=== PATIENT | male | born 1950 | race Caucasian/White ===

== ENCOUNTER → 2016-04-20 | Outpatient (CLI) | payer BC ==
[~2016-04-20] MED LIST: ADVIN25050 INH; ALBUAER19 INH; METO25TA56 PO; MONT1TAB3 PO; NEOMYCIN OTB; PANT40TA PO; POLYMYXIN OTB; PRAV40TA2 PO; TERA5CAP PO; TIOTCAP INH; VITAMIN B-12 PO; VITAMIN D PO; ZNTT/150 PO
== END | disposition home or self-care (01) ==
LOC: C.MAMM 10:01
PROVIDERS: ATTEND Family Medicine
DX: E55.9 Vitamin D deficiency, unspecified (principal); M81.0 Age-related osteoporosis without current pathological fracture

== ENCOUNTER → 2016-07-07 | Outpatient (CLI) | payer BC ==
[2016-07-07 12:01] LABS: ALT/SGPT 28 U/L (12-78); AST/SGOT 17 U/L (15-37); BLOOD UREA NITROGEN 18 mg/dl (7-18); BUN/CREATININE RATIO 13.5 (10-20); CALCIUM 8.7 mg/dl (8.5-10.1); CARBON DIOXIDE 32 mmol/L (21-32); CHLORIDE 104 mmol/L (98-107); GLUCOSE 96 mg/dl (70-99); POTASSIUM 4.1 mmol/L (3.5-5.1); SODIUM 139 mmol/L (136-145)
[2016-07-07 12:04] LABS: ALB/GLOB RATIO 1.1 (0.9-2); ALKALINE PHOSPHATASE 88 U/L (45-117)
== END | disposition home or self-care (01) ==
LOC: C.LAB 10:59
PROVIDERS: ATTEND Physician Assistant
DX: R93.8 Abnormal findings on diagnostic imaging of other specified body structures (principal)

== ENCOUNTER → 2016-07-12 | Outpatient (CLI) | payer BC ==
[~2016-07-12] MED LIST changes: +OPTIRAY 320 IV PRN
--- NOTE | 2016-07-12 14:42 | DIAGNOSTIC IMAGING REPORT ---
CT ABD/PELVIS IV AND ORAL CONT CLINICAL HISTORY: Lymphadenopathy. COMPARISON STUDY: 06/18/2015 TECHNIQUE: Following the IV administration of 93 mL of Optiray-320, CT scan of the abdomen and pelvis was performed from the lung bases to the proximal femurs. Images are reviewed in the axial, sagittal, and coronal planes. IV contrast was administered without complication. CT DOSE: 908.12 mGy.cm FINDINGS: Lower chest: There is elevation/eventration of the right hemidiaphragm. There is right basilar atelectasis. Liver: There is mild hepatic steatosis. No focal masses are visualized. Gallbladder: Unremarkable. Spleen: Normal in size and attenuation. Pancreas: Unremarkable. Adrenal glands: Unremarkable. Kidneys: There are left renal parapelvic cysts. No solid renal masses are visualized. Bowel: There are no transition zones indicate bowel obstruction. There is colonic diverticulosis. There are no acute peridiverticular inflammatory changes. Peritoneum: There is no intraperitoneal free air or abdominal ascites. This tiny fat-containing umbilical hernia. Vasculature: The abdominal aorta is normal in course and caliber. Adenopathy: Mildly prominent lymph nodes at the level of the iliac chain and common femoral region remain stable. Pelvic viscera: The bladder, and pelvic viscera are unremarkable. 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 IMPRESSION: 1. No evidence of bowel obstruction. No evidence of free air 2. No acute inflammatory changes 3. No significant change x1 year in the mildly prominent retroperitoneal lymph nodes. The nodes remain the upper limits of normal in size. 4. Elevation/eventration right hemidiaphragm. Right basilar atelectasis. Electronically signed by: Gustabo Hernandez M.D. 07/12/2016 2:41 PM Dictated Date/Time: 07/12/2016 2:36 PM
== END | disposition home or self-care (01) ==
LOC: C.CTS 13:33
PROVIDERS: ATTEND Internal Medicine
DX: R93.5 Abnormal findings on diagnostic imaging of other abdominal regions, including retroperitoneum (principal); R59.1 Generalized enlarged lymph nodes

== ENCOUNTER → 2016-07-20 | Outpatient (CLI) | payer BC ==
[~2016-07-20] MED LIST changes: -OPTIRAY 320 IV PRN
--- NOTE | 2016-07-20 18:10 | DIAGNOSTIC IMAGING REPORT ---
CHEST 2 VIEWS ROUTINE CLINICAL HISTORY: Hypoxia COMPARISON STUDY: 03/09/2016 FINDINGS: There is elevation of the right hemidiaphragm. There is colonic interposition. The heart is normal in size. There is no failure. There is no focal pulmonary consolidation. No pleural effusions are visualized. There is stable tenting of the posterior right hemidiaphragm on the lateral view.[ IMPRESSION: No active disease in the chest. Electronically signed by: Gustabo Hernandez M.D. 07/20/2016 6:09 PM Dictated Date/Time: 07/20/2016 6:08 PM
== END | disposition home or self-care (01) ==
LOC: C.RAD 17:38
PROVIDERS: ATTEND Internal Medicine
DX: R09.02 Hypoxemia (principal)

== ENCOUNTER → 2016-08-11 | Outpatient (CLI) | payer BC ==
--- NOTE | 2016-08-11 10:39 | DIAGNOSTIC IMAGING REPORT ---
CHEST 2 VIEWS ROUTINE HISTORY: Cough. COMPARISON: Chest 07/20/2016. FINDINGS: Suture material within the right lung apex is again noted. There is chronic elevation of the right hemidiaphragm. The heart is stable in size. No pleural effusions. No pneumothorax. Right medial lung base density remains unchanged likely represent subsegmental atelectasis. A few linear densities the left lung base. The upper lung zones remain clear. IMPRESSION: 1. Chronic elevation of the right hemidiaphragm with stable linear densities at the right lung base suggestive of atelectasis are scarring. 2. There are also a few linear densities at the left lung base which also favors atelectasis. Electronically signed by: Erick Abkar M.D. 08/11/2016 10:38 AM Dictated Date/Time: 08/11/2016 10:35 AM
== END | disposition home or self-care (01) ==
LOC: C.RAD1850 10:17
PROVIDERS: ATTEND Physician Assistant Medical
DX: R05 Cough (principal)

== ENCOUNTER → 2016-11-17 | Outpatient (CLI) | payer BC ==
--- NOTE | 2016-11-18 09:11 | PAP/PSG TECHNICIAN REPORT ---
[facility] Mitigation Supervisor Polysomnogram Report Study name: None Report date: 11/18/2016 Study date: 11/17/2016 Referring Physician: Letty Broderick DO Name: LILIANE HARTMAN Interpreting Physician: Jarvis Lutz D.O. Date of : 1950 Mitigation Supervisor: Anca Hamilton, PSGT. Sex: Male Age: 66 StudyType: PSG Weight: 221 lbs Height: 66 years, Height 5' 11" Neck Circum:16.5 inches BMI: 30.82 Medications: See list of 15 medications. Patient History 66 yr. old male in room 7, presents tonight for a diagnostic split night study. Patient has a very complex medical history. He complains of shortness of breath coughing phlegm and morning headaches, wakes often to urinate, and states that he sleeps elevated for acid reflux and C.O.P.D. Ess= 11, Neck = 16.5 inches. Parameters Monitored NPSG: E1-M2, E2-M1, Fp1-M2, Fp2-M1, F3-M2, F4-M2, F4-M1, C3-M2, C4-M2, C4-M1, O1-M2, O2-M2, O2-M1, T3-M2, T4-M1, P3-M2, P4-M1, CHIN1, CHIN2, HR, EKG, Legs, PFLOW, SNOR, FLOW, CFLOW, Tidal Volume, THOR, ABDO, SpO2, PLTH, CPRESS, ETCO2 Wave, ETCO2, pH Sleep Architecture Sleep Stages Time at Lights Off 11:01:05 PM STAGES Time (min.) TST (%) Time at Lights On 5:32:35 AM Wake 85.0 -- Total Recording Time (TRT) 388.00 min. N1 13.5 4 Total Sleep Period (TSP) 357.0 min. N2 246.0 81 Total Sleep Time (TST) 303.0min. N3 0.0 0 Awake Time 85.0 min. REM 43.5 14 Wake after Sleep Onset 56.5 min. Sleep Efficiency (SE) 78 % Sleep Onset Latency (ANTONINO) 32.0 min. Number of Stage 1 Shifts None Awakenings 6 Stage Changes 28 Number of REM periods 3 REM 43.5 14 REM Latency 151.0 min. NREM 259.5 86 Body Position Analysis Supine Right Left Side Prone Vertical Total Sleep Time (min.) 100.3 0.0 234.1 234.11 0.0 0.0 Total Sleep Time (%) 23% 0% 77% 77 0% N/A% Total Sleep Time REM (min.) 0.0 0.0 43.5 None 0.0 0.0 Total Sleep Time NREM (min.) 68.9 0.0 190.6 None 0.0 0.0 Intermittent Wake (min.) 31.4 0.0 53.6 None 0.0 0.0 Total Sleep Period (%) 27% None None None None None Arousals Myoclonus (PLM) * Events Count Index Events Count Index Spontaneous 45 9 Events Awake (PLMW) 7 4.9 Respiratory 23 4.6 Events Asleep w/ Arousal (PLMA) 23 4.6 PLM 23 5 Events Asleep w/o Arousal (PLMS) 171 33.9 Snoring 16 3 Total Asleep 194 38.4 Total 107 21 Total 201 31 Respiratory Analysis * CA OA MA CH H RERA Total Count 0 3 1 0 132 0 136 Index 0.0 0.6 0.2 0 26.1 0 26.9 Mean Duration 0.0 14.8 13.7 0.00 20.7 0.0 20.5 Longest Duration 0.0 15.5 13.7 0.00 13.7 0.0 55.1 Respiratory Event Summary Total Supine ~Supine Right Left Prone REM NREM Apneas Count 4 0 4 N/A 4 N/A 0 4 Index 0.8 0 1 N/A 1.0 N/A 0 1 Hypopneas (4% Desat) Count 132 65 67 N/A 67 N/A 22 110 Index 26.1 56.6 17 N/A 17.2 N/A 30.3 25.4 Apneas & All Hypopneas Count 136 65 71 N/A 71 N/A 22 114 Index 26.9 57 18 N/A 18 N/A 30.3 26.4 Respiratory Events ([employer]+All Hyp+RERA) Count 136 65 71 N/A 71 N/A 22 114 Index 26.9 57 18 N/A 18.2 N/A 30.3 26.4 Respiratory Related Arousal Count 23 65 6 N/A 6 N/A 1 22 Index 4.6 15 2 N/A 2 N/A 1 5 Snoring Analysis Supine Right Left Prone REM NREM Total Snore duration 40.2 min Snores count 107 N/A 1,530 N/A 40 1,597 1,637 Snore mean duration 1.5 Sec Snores index 93 N/A 392 N/A 55.2 369.2 324.2 TST with snoring (%) 13.3% Desaturation Event Summary: Minimum %SpO2 Event Count Mean/Min/Max Duration(sec.) Desaturation Index % Time In Bed > 90 9 24.0 / 15.3 / 43.0 24.4 5.7 86 - 90 122 24.7 / 9.3 / 58.8 34.7 54.6 81 - 85 52 23.6 / 11.0 / 54.3 30.5 26.5 76 - 80 19 22.5 / 10.8 / 47.0 56.5 5.2 71 - 75 20 22.8 / 6.5 / 43.5 63.8 4.9 66 - 70 4 16.5 / 10.0 / 25.8 22.0 2.8 61 - 65 0 N/A 0.0 0.3 56 - 60 0 N/A 0.0 0.0 51 - 55 0 N/A 0.0 0.0 < 50 0 N/A 0.0 0.0 Total REM NREM Awake <50% 0.0 min. 0.0 min. 0.0 min. 0.0 min. 51 - 60% 0.0 min. 0.0 min. 0.0 min. 0.0 min. 61 - 70% 12.0 min. 12.0 min. 0.0 min. 0.0 min. 71 - 80% 39.0 min. 25.6 min. 13.3 min. 0.0 min. 81 - 90% 312.9 min. 5.9 min. 244.4 min. 62.6 min. 91 - 100% 22.1 min. 0.0 min. 1.7 min. 20.4 min. Average 85 74 85 89 Minimum SpO2 63 63 72 82 Desaturation Event Index 27.2 48.3 32.6 0.7 # Desat. Events below 89% 176 35 141 N/A Time(%) with Saturation below 89% 83.2 11.3 62.8 9.1 Time(min.) with Saturation below 89% 320.9 43.5 242.4 35.1 Time (mins) REM (mins) NREM (mins) % of TST SpO2 Below 90% 176 35 N141 97.4 SpO2 Below 88% 72 0 0 86 Heart Rate Analysis Min (bpm) Max (bpm) Average (bpm) Awake 56 127 71 NREM 56 88 71 REM 69 94 81 Overall 56 94 72 Supplemental O2 Values Minimum O2 level: None Value Start Time End Time Mitigation Supervisor Comments PSG Study slept in the left, and supine positions, with the head of the bed inclined at a 45-degree angle. No cardiac arrhythmia or PLM's noted. No bruxism noted. Snoring was noted and scored as a 4 on a scale of 1 through 5. (0=no snoring, 5=snoring loud enough to be heard through a closed door or down the [address] way) awoke to use the restroom 5 times during the night. Mr. Hartman stated, I did sleep better than I do when I am in my own bed. The final report will be interpreted and signed by a sleep physician. The completed physician report will then be placed in the patient medical record. Mr. Hartman dispalyed severe oxygen saturations the entire study, he also had respiratory events throughout the study. Mr. Rader was asked to turn off all the electronics at 11:15 PM, he stated that he often reads prior to falling asleep. Patient complained of nasal congestion and chest (rib) pain prior to sleep. Therapy (cm H2O) 0 TIB (min.) 388.0 TST (min.) 303.0 Sleep Onset (min.) 32.0 REM Onset From Sleep (min.) 151.0 Sleep Efficiency % 78 Wakefulness (%) 22 Wakefulness (min.) 85.0 NREM 1 (%) 4 NREM 1 (min.) 13.5 NREM 2 (%) 81 NREM 2 (min.) 246.0 NREM 3 (%) 0 NREM 3 (min.) 0.0 REM (%) 14 REM (min.) 43.5 # Arousals 107 Arousal Index 21 # Snore 1,637 Snore Index 324.2 AHI 26.9 AHI Supine 57 AHI Non-Supine 18 NREM AHI 26.4 REM AHI 30.3 RDI 26.9 # Obstructive Apnea 3 # Central Apnea 0 # Mixed Apnea 1 # Hypopneas 132 RERAs 0 Total Respiratory Events 136 Time Below SpO2 89% (min.) 285.9 Mean NREM SpO2 (%) 85 Mean REM SpO2 (%) 74 Mean Sleep SpO2 (%) 84 Min NREM SpO2 (%) 72 Min REM SpO2 (%) 63 Position Supine (min.) 100.3 Position Non-supine (min.) 234.1 LM Index Sleep 38.4 LM Index NREM 39.8 LM Index REM 30.3 Mean Heart Rate (bpm) 72 Min Heart Rate (bpm) 56
--- NOTE | 2016-11-21 15:19 | POLYSOMNOGRAPH REPORT ---
CLINICAL DATA: The patient is a 66-year-old male with a BMI of 30.82. He has a history of snoring, disturbed nocturnal sleep, and excessive daytime somnolence. His Camden score is 11 out of a possible 24. This was an in-lab polysomnography. SLEEP ARCHITECTURE: The total sleep period was 357.0 minutes. The total sleep time was 303.0 minutes. The sleep efficiency was 78%. The sleep latency was prolonged at 32 minutes. Wake after sleep onset was 56.5 minutes. REM latency was prolonged to 151 minutes. There were 2 REM periods during the night. Sleep consisted of stage N1 4%, stage N2 81%, stage N3 0%, stage REM 14%. AROUSAL DATA: The patient had a total of 107 arousals including 45 spontaneous arousals, 23 respiratory arousals, 23 PLM arousals, and 16 snoring arousals. The arousal index was 21. PLM DATA: The patient had a total of 194 periodic limb movements for a PLM index of 38.4. There were 23 arousals associated with limb movements for a PLM arousal index of 4.6. EKG: The underlying cardiac rhythm was normal sinus. The cardiac rates ranged from 56-94 beats per minute. The average heart rate was 72 beats per minute. RESPIRATORY DATA: The patient had a total of 136 respiratory events including 3 obstructive apneas, 1 mixed apnea, and 132 hypopneas. Hypopneas were scored according to the 4% desaturation rule. The longest apnea was 15.5 seconds. The mean duration of the hypopneas was 20.7 seconds. The apnea-hypopnea index was moderately elevated at 26.9 events per hour. This reflects moderate sleep apnea. OXIMETRY DATA: The average saturation for the night was 85%. The minimum saturation was 63%. The most severe desaturations occurred during REM sleep. There was a total of 320.9 minutes with saturations less than 89%. ROOFING SALES REPRESENTATIVE COMMENTS: The patient slept in the left and supine positions. The head of the bed was inclined at 45-degree angle. No cardiac arrhythmia noted. No bruxism noted. Snoring was noted and scored as a 4 on a scale of 1 through 5. The patient awakened to use the restroom 5 times during the night. In spite of this, the patient stated that he slept better than he does when in his own bed. He displayed severe oxygen desaturations throughout the entire study. IMPRESSIONS: 1. Obstructive sleep apnea -- moderate. 2. Periodic limb movement disorder. 3. Severe hypoxia. COMMENTS: The patient had loud snoring. He had moderate sleep apnea as noted above. He had severe hypoxemia. His sleep was disrupted as a result of the sleep disordered breathing. He also had frequent periodic limb movements. The underlying sleep disordered breathing should be treated first. The limb movements can then be assessed after treatment. The patient does have significant symptoms. He has a history of asthma and diaphragmatic paralysis. Treatment for the underlying sleep apnea is indicated. RECOMMENDATIONS: 1. It is advised that the patient be given a trial of nasal CPAP or BiPAP. This could be accomplished either by an in-lab CPAP titration study or treatment with auto CPAP. 2. The patient should have a followup overnight pulse oximetry study done while on CPAP to determine if he still needs additional oxygenation. 3. Suggest a serum ferritin level as part of the evaluation for the limb movement disorder. 4. Weight loss is advised in light of the elevation of body mass index of 30.82.
== END | disposition home or self-care (01) ==
LOC: C.NEUR 21:00
PROVIDERS: ATTEND Internal Medicine Pulmonary Disease
DX: G47.33 Obstructive sleep apnea (adult) (pediatric) (principal); G47.61 Periodic limb movement disorder; G47.34 Idiopathic sleep related nonobstructive alveolar hypoventilation

== ENCOUNTER 2024-12-14 18:00 | Inpatient (IN) ==
[2024-12-14 18:30] LABS: Hematocrit (blood only) 46.5 % (42.0-52.0); Hemoglobin 16.7 g/dl (14.0-18.0); Immature Granulocytes # (auto) 0.03 K/uL (0.01-0.20); Immature Granulocytes % (auto) 0.4 %; Mean Corpuscular Hemoglobin 32.1 pg (25.0-34.0); Mean Corpuscular Volume 89.3 fL (80.0-100.0); Platelet Count 114 K/uL (130-400); RDW Standard Deviation 41.1 fL (36.4-46.3); Red Blood Count 5.21 M/uL (4.70-6.10); White Blood Count 7.10 K/ul (4.8-10.8)
[2024-12-14 18:45] LABS: Alanine Aminotransferase 22.0 U/L (7-52); Albumin Globulin Ratio 1.3 (0.9-2); Albumin Level 3.9 gm/dl (3.4-5.0); Alkaline Phosphatase 71.0 U/L (34-104); Anion Gap 8.0 (3-11); Bilirubin,Total 1.5 mg/dl (0.2-1.0); Blood Urea Nitrogen 29.0 mg/dl (6-23); Calcium 8.5 mg/dl (8.6-10.3); Carbon Dioxide 28.0 mmol/L (21-32); Chloride 95.0 mmol/L (98-107); Creatinine Clr Calc Pharmacy 36.9 ml/min; Globulin 3.0 gm/dl (2.5-4.0); Glucose 139.0 mg/dl (70-99(Fasting)); Potassium 4.1 mmol/L (3.5-5.1); Sodium 131.0 mmol/L (136-145); Total Protein 6.9 gm/dl (6.0-8.3)
[2024-12-14] MEDS: SODIUM CHLORIDE 0.9% 1,000 ML IV ONE (18:58)
--- NOTE | 2024-12-14 18:58 | XRay Report ---
Chest radiograph, one view History: Dyspnea Comparison: None Findings: Single AP view of the chest performed. No focal consolidation or pleural effusion. No pneumothorax. The cardiomediastinal silhouette is within normal limits. Normal pulmonary vascularity. No evidence for lymphadenopathy. No visualized bony or soft tissue abnormality. Impression: Normal chest radiograph Electronically signed by Jeferson Li 12-14-2024 6:58 PM
--- NOTE | 2024-12-14 19:07 | Emergency Department Note ---
Impression & Plan Fever, Acute hypoxic respiratory failure ED Provider Note NAME: LILIANE ESQUEDA AGE: 74 SEX: M : 1950 ARRIVES VIA: Ambulance INFORMANT: Patient, ED PROVIDER(S): Anitha Sweet MD CHIEF COMPLAINT: Fatigue, confusion, fever HPI: This is 72-year-old male presenting for fatigue, confusion, nausea. Patient had nausea for the last several days, unable to take his medications at home. He states he may have had a fever. He thought he had a upper respiratory infection but it is not getting better. He notes he feels weak. He has no chest pain or shortness of breath currently. His daughter state that he definitely is acting more confused and fatigued. Patient had a fever with EMS as per daughters. ROS: See above HPI for pertinent positives & negatives. A total of 10 systems reviewed and were otherwise negative. PAST MEDICAL HISTORY: See Below PAST SURGICAL HISTORY: See Below FAMILY HISTORY: See Below SOCIAL HISTORY: See Below HOME MEDICATIONS: See Below ALLERGIES: See Below VITALS: See Below PHYSICAL EXAMINATION: General: resting comfortably in no acute distress Head: Normocephalic and atraumatic Eyes: Normal inspection, extraocular muscles intact Ear, nose, throat: Normal external exam Neck: Normal range of motion Respiratory: lungs clear to auscultation bilaterally Cardiovascular: Regular rate/rhythm, no murmur GI: soft, nontender, no guarding or rebound Extremities: nontender, moves all extremities Neuro: The patient awake and alert, appropriately conversive, no focal deficits, symmetric faces Skin: Warm, dry, and intact MEDICAL DECISION MAKING: This is a 74-year-old male seen for fatigue, confusion/nausea. Patient is febrile, tachycardic. Not hypotensive. Not taking his blood pressure medications. Will do screening blood work, respiratory panel, chest x-ray. - Chest Xray independently interpreted by me showing no pneumothorax, focal opacity, or pleural effusions. - Bloodwork is reviewed showing no significant leukocytosis, anemia. Slight hyponatremia/hypochloremia. Creatinine is 2.02. Respiratory panel negative -Will admit the patient at this time for fever, tachycardia. Will give ceftriaxone and azithromycin for empiric coverage - Care discussed with Dr. Hollis Differential diagnosis: Pneumonia, URI, sepsis, UTI Independent History obtained from: [facility] interpreted by me: ECG: ECG independently interpreted by me with sinus tachycardia at a rate of 113, first-degree AV block, left axis deviation normal QRS, normal QTc, no ST segment elevations consistent with STEMI criteria Cardiac Monitoring: An order was placed for continuous cardiac monitoring. The monitor shows a rate of 114 with sinus rhythm. Past Med/Surg History Problem List (Updated 12/15/24 @ 00:28 by Anitha Sweet MD) Acute hypoxic respiratory failure (Acute) Fever (Acute) Acute metabolic encephalopathy Fever Carpal tunnel syndrome on both sides Tingling Mild cognitive impairment Nocturnal hypoxia Torticollis Facet arthropathy, cervical Balance problem Neuroforaminal stenosis of cervical spine Cervical spondylosis Chronic low back pain Stage 3b chronic kidney disease Chronic kidney disease, stage 3 (moderate) Depression with anxiety Esophageal dysphagia Asthma COPD (chronic obstructive pulmonary disease) Allergic rhinitis Asthma, moderate persistent Chronic asthmatic bronchitis Diaphragmatic paralysis Fatty liver Gastroesophageal reflux disease without esophagitis Hypercholesterolemia Hypertension Lumbar canal stenosis Obstructive sleep apnea of adult can't tolerate cpap Prediabetes not dx that pt aware of Unequal leg length (acquired) Vitamin B12 deficiency Vitamin D deficiency Medical History Esophageal dysphagia pt denies COVID-19 (~03/27/24) hx with influenza B - resolved as per patient Influenza B (~03/27/24) and covid hx - resolved as patient 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 Frequent urination at night Terazosin for/never been told prostate enlarged. Anemia History of Lyme disease Surgical History History of esophagogastroduodenoscopy (EGD) History of colonoscopy History of total right hip replacement History of cataract surgery Bilateral H/O excision of mass Left lower back S/P thoracotomy (2004) Right Status post blepharoplasty (2012) Bilateral Status post vasectomy Status post arthroscopy of knee Left Status post hip replacement (12/2014) Left Family History Father Asthma Bronchitis Cardiac disorder Myocardial infarction Hypertension Mother Lymphoma Denies family history of Ovarian cancer Prostate cancer Breast cancer Colorectal cancer Social History Smoking Status: Former smoker Tobacco Type: Smokeless Tobacco (Dip or Chew) Age Started Using Tobacco: 20; Cigarettes Per Day: CHEWS TOBACCO DAILY (1 can last 2-3 days); Second Hand Exposure: No; Do You Dip or Chew Tobacco: Yes (Advised); Hx Alcohol Use: No Hx Substance Use: No Preferred Language: Belarusian Communication Ability: Effective Visual Impairment: No Limitations Hearing Ability: Normal Lump Room Supervisor Required: No Beliefs That Will Affect Care: None marital status: Current Living Situation: Family Current Living Situation Comment: Daughter current occupational status: retired How many Children do You have: 3 Feels Safe at Home: Yes Childhood Exposure to Second-Hand Smoke: Yes (father sometimes) Diet: regular caffeine: Yes during the past year weight has: remained stable Dental Care, Regularly: Yes Physical Activity Frequency: Daily Seatbelt Use: always Sunscreen Use: No Assistive Devices: Glasses Allergies Allergies Allergy/AdvReac Type Severity Reaction Status Date / Time adhesive tape Allergy Intermediate with hip Verified 11/23/24 10:44 replacement: tape irritated skin clavulanic acid AdvReac Intermediate Vomiting Verified 11/23/24 10:44 [From Augmentin] pollen Allergy Intermediate Itchy/Watery Uncoded 11/23/24 10:44 Eyes, Congestion, Runny Nose Home Meds Home Medications Medication Instructions Recorded Confirmed losartan 50 mg tablet 100 mg PO DAILY 10/18/24 12/14/24 metoprolol succinate 25 mg 12.5 mg PO QAM 10/18/24 12/14/24 tablet,extended release 24 hr Previous Rx's Medication Instructions Recorded pantoprazole 40 mg tablet,delayed 40 mg PO BID #180 tabs 06/01/24 release fluticasone propionate 50 2 spray intranasal UD PRN 07/17/24 mcg/actuation nasal Allergies #48 grams spray,suspension montelukast 10 mg tablet 10 mg PO QAM #90 tabs 09/04/24 (Singulair) terazosin 5 mg capsule 5 mg PO HS #90 caps 09/17/24 baclofen 10 mg tablet 10 mg PO BID PRN muscle spasm #60 10/05/24 tabs fluticasone fur. 100 mcg-umeclid 1 inh inhalation QAM #90 ea 11/26/24 62.5 mcg-vilant 25 mcg inhalat.powder (Trelegy Ellipta) Results & Data (ED) Vital Signs Vital Signs - 24 hr 12/14/24 18:05 12/14/24 18:05 12/14/24 18:09 Temperature Temperature Source Pulse Rate 113 H Pulse Rate from SpO2 Sensor 113 H Respiratory Rate 22 Respiratory Effort / Characteristics Respiratory Depth Blood Pressure 162/101 H 162/101 H Blood Pressure Mean 119 119 Pulse Oximetry 94 Oxygen Delivery Method Oxygen Flow Rate Sepsis Recent Fever Within 48 Hours Sepsis New/Unexplained Change in Mental Status Sepsis Action Taken by Nursing 12/14/24 18:11 12/14/24 18:11 12/14/24 18:16 Temperature 38.2 C H Temperature Source Oral Pulse Rate 113 H 114 H Pulse Rate from SpO2 Sensor Respiratory Rate 17 Respiratory Effort / Characteristics Non-Labored Spontaneous Respiratory Depth Normal Blood Pressure 162/101 H Blood Pressure Mean 121 Pulse Oximetry 86 L 94 Oxygen Delivery Method Room Air Nasal Cannula Oxygen Flow Rate 2 Sepsis Recent Fever Within 48 Hours Yes Sepsis New/Unexplained Change in Mental Status No Sepsis Action Taken by Nursing Physician Notified 12/14/24 18:22 12/14/24 18:33 12/14/24 18:42 Temperature Temperature Source Pulse Rate 115 H 114 H Pulse Rate from SpO2 Sensor 113 H 114 H Respiratory Rate 19 24 Respiratory Effort / Characteristics Respiratory Depth Blood Pressure Blood Pressure Mean Pulse Oximetry 93 94 94 Oxygen Delivery Method Nasal Cannula Oxygen Flow Rate 2 Sepsis Recent Fever Within 48 Hours Sepsis New/Unexplained Change in Mental Status Sepsis Action Taken by Nursing 12/14/24 18:51 12/14/24 19:27 12/14/24 19:30 Temperature Temperature Source Pulse Rate 113 H 117 H 123 H Pulse Rate from SpO2 Sensor 114 H 121 H Respiratory Rate 23 18 19 Respiratory Effort / Characteristics Respiratory Depth Blood Pressure 148/81 H Blood Pressure Mean 103 Pulse Oximetry 94 93 Oxygen Delivery Method Oxygen Flow Rate Sepsis Recent Fever Within 48 Hours Sepsis New/Unexplained Change in Mental Status Sepsis Action Taken by Nursing 12/14/24 20:09 12/14/24 20:12 12/14/24 20:24 Temperature Temperature Source Pulse Rate 107 H 108 H 107 H Pulse Rate from SpO2 Sensor 108 H 108 H 108 H Respiratory Rate 22 21 20 Respiratory Effort / Characteristics Respiratory Depth Blood Pressure Blood Pressure Mean Pulse Oximetry 95 94 94 Oxygen Delivery Method Oxygen Flow Rate Sepsis Recent Fever Within 48 Hours Sepsis New/Unexplained Change in Mental Status Sepsis Action Taken by Nursing 12/14/24 20:31 12/14/24 20:45 12/14/24 20:54 Temperature Temperature Source Pulse Rate 102 H 107 H Pulse Rate from SpO2 Sensor Respiratory Rate 22 28 H Respiratory Effort / Characteristics Respiratory Depth Blood Pressure 137/106 H Blood Pressure Mean 114 Pulse Oximetry Oxygen Delivery Method Oxygen Flow Rate Sepsis Recent Fever Within 48 Hours Sepsis New/Unexplained Change in Mental Status Sepsis Action Taken by Nursing Laboratory Data 12/14/24 Unknown 12/14/24 Unknown Lab Results 12/14/24 Range/Units Unknown WBC 7.10 (4.8-10.8) K/ul RBC 5.21 (4.70-6.10) M/uL Hgb 16.7 (14.0-18.0) g/dl Hct 46.5 (42.0-52.0) % MCV 89.3 (80.0-100.0) fL MCH 32.1 (25.0-34.0) pg MCHC 35.9 (32.0-36.0) g/dL RDW Std Deviation 41.1 (36.4-46.3) fL RDW Coeff of Robyn 12.5 (11.5-14.5) % Plt Count 114 L (130-400) K/uL MPV 10.1 (9.4-12.4) fL Immature Gran % (Auto) 0.4 % Neut % (Auto) 86.7 % Lymph % (Auto) 7.5 % [place] % (Auto) 5.1 % Eos % (Auto) 0.0 % Baso % (Auto) 0.3 % Neut # (Auto) 6.16 (1.40-6.50) K/uL Lymph # (Auto) 0.53 L (1.20-3.40) K/uL [place] # (Auto) 0.36 (0.11-0.59) K/uL Eos # (Auto) 0.00 (0.00-0.50) K/uL Baso # (Auto) 0.02 (0.00-0.20) K/uL Immature Gran # (Auto) 0.03 (0.01-0.20) K/uL Sodium 131 L (136-145) mmol/L Potassium 4.1 (3.5-5.1) mmol/L Chloride 95 L (98-107) mmol/L Carbon Dioxide 28 (21-32) mmol/L Anion Gap 8 (3-11) BUN 29 H (6-23) mg/dl Creatinine 2.02 H (0.6-1.4) mg/dl Est Cr Clr Drug Dosing 36.9 ml/min eGFR 34.39 BUN/Creatinine Ratio 14.4 (10-20) Glucose 139 H (70-99(Fasting)) mg/dl Calcium 8.5 L (8.6-10.3) mg/dl Total Bilirubin 1.5 H (0.2-1.0) mg/dl AST 29 (13-39) U/L ALT 22 (7-52) U/L Alkaline Phosphatase 71 (34-104) U/L Total Protein 6.9 (6.0-8.3) gm/dl Albumin 3.9 (3.4-5.0) gm/dl Globulin 3.0 (2.5-4.0) gm/dl Albumin/Globulin Ratio 1.3 (0.9-2) Administered Medications Lactated Ringer's (Lr) 1,000 mls @ 125 mls/hr IV .Q8H [place] Stop: 12/15/24 15:09 Last Admin: 12/14/24 23:54 Dose: 125 mls/hr Documented By: AES Ondansetron HCl (Ondansetron Inj 2 Mg/Ml 2 Ml Vial) 4 mg IV Q6H PRN PRN Reason: Nausea And Vomiting Stop: 01/13/25 23:09 Last Admin: 12/15/24 00:23 Dose: 4 mg Documented By: AES Pantoprazole Sodium (Pantoprazole 40 Mg Tab) 40 mg PO BID [place] Stop: 01/13/25 23:09 Last Admin: 12/14/24 23:57 Dose: 40 mg Documented By: AES Terazosin HCl (Terazosin Hcl 5 Mg Cap) 5 mg PO HS [place] Stop: 01/13/25 23:09 Last Admin: 12/15/24 00:01 Dose: 5 mg Documented By: AES Discontinued Medications Sodium Chloride (Nss) 1,000 mls @ 999 mls/hr IV .Q1H1M ONE Stop: 12/14/24 19:17 Last Infusion: 12/14/24 20:06 Dose: Infused Documented By: Admin: 12/14/24 18:58 Dose: 999 mls/hr Documented By: BS Ceftriaxone Sodium (Rocephin) 2,000 mg in 50 mls @ 100 mls/hr IV NOW STA Stop: 12/14/24 20:50 Last Infusion: 12/14/24 22:21 Dose: Infused Documented By: Admin: 12/14/24 21:48 Dose: 100 mls/hr Documented By: BS Doxycycline Hyclate 100 mg/ (Dextrose) 100 mls @ 50 mls/hr IV NOW STA Stop: 12/14/24 22:56 Last Infusion: 12/15/24 00:24 Dose: Infused Documented By: Admin: 12/14/24 22:17 Dose: 50 mls/hr Documented By: BS Acetaminophen (Ofirmev) 1,000 mg in 100 mls @ 400 mls/hr IV NOW STA Stop: 12/14/24 23:32 Last Infusion: 12/14/24 23:53 Dose: Infused Documented By: Admin: 12/14/24 23:25 Dose: 400 mls/hr Documented By: AES Metoprolol Succinate (Metoprolol Succ 25mg Ext Rel Tab) 25 mg PO NOW STA Stop: 12/14/24 20:22 Last Admin: 12/14/24 21:48 Dose: 25 mg Documented By: BS Imaging Data Radiologist's Impression: Chest X-Ray 12/14/24 18:17 Chest radiograph, one view History: Dyspnea Comparison: None Findings: Single AP view of the chest performed. No focal consolidation or pleural effusion. No pneumothorax. The cardiomediastinal silhouette is within normal limits. Normal pulmonary vascularity. No evidence for lymphadenopathy. No visualized bony or soft tissue abnormality. Impression: Normal chest radiograph Electronically signed by Jeferson Li 12-14-2024 6:58 PM Discharge Plan Visit Data Chief Complaint: Fever Stated Complaint: WEAK, DIZZY, FEVER ED Provider: Anitha Sweet Discharge Problem: Fever, Acute hypoxic respiratory failure Patient Disposition: Admitted As Inpatient Condition: Fair Discharge Instructions Interventions: ED Discharge Assessment Last Done: 12/14/24 23:23 Discharge Problem: Fever Qualifiers: Fever type: unspecified Qualified Code(s): R50.9 - Fever, unspecified
[2024-12-14 19:55] LABS: Chlamydia pneumoniae PCR Not Detected (NotDetected); Coronavirus 229E PCR Not Detected (NotDetected); Coronavirus CoV-2 (COVID19)PCR Not Detected (NotDetected); Coronavirus HKU1 PCR Not Detected (NotDetected); Coronavirus NL63 PCR Not Detected (NotDetected); Coronavirus OC43PCR Not Detected (NotDetected); Human Metapneumovirus PCR Not Detected (NotDetected); Parainfluenza Virus 1 PCR Not Detected (NotDetected); Parainfluenza Virus 2 PCR Not Detected (NotDetected); Parainfluenza Virus 3 PCR Not Detected (NotDetected); Parainfluenza Virus 4 PCR Not Detected (NotDetected); Respiratory Syncytial VirusPCR Not Detected (NotDetected); Rhinovirus/Enterovirus PCR Not Detected (NotDetected)
[2024-12-14 20:35] LABS: Appearance Urine Clear (Clear); Bacteria Urine Automated None Seen (None Seen); Epithelial Cell Urine Auto 0-2 /hpf (0-2); Glucose Urine UA Negative (Negative); WBC Urine Automated 0-5 /hpf (0-5)
--- NOTE | 2024-12-14 20:57 | History & Physical Report ---
Date of Service December 14, 2024 Assessment & Plan (1) Fever: (2) Acute metabolic encephalopathy: (3) COPD (chronic obstructive pulmonary disease): (4) Hypertension: (5) Gastroesophageal reflux disease without esophagitis: (6) Stage 3b chronic kidney disease: Plan Patient is a 74-year-old male with history of hypertension, hyperlipidemia, COPD, CKD presenting with 4 to 5 days of nausea, generalized weakness, headache, fever and confusion. Patient febrile upon arrival #FeverTmax = 38.3. Patient with elevated heart rate as well. He has normal WBC count. No obvious source of infection as of yet. Respiratory bio fire panel was unremarkable, chest x-ray with no infiltrate, urinalysis does not suggest infection. Blood cultures x 2 have been sent. Patient Lyme screen is positive however, confirmatory IgG and IgM tests are negative. [place] and has been doing projects outside of [facility]. Do suspect that he could have some sort of tickborne illness. Labs in favor of this with thrombocytopenia platelets = 114, lymphopenia as well as hyponatremia and elevated T. bili Admit to medical telemetry Follow cultures and remaining Lyme/tickborne studies LR at 125 mL's per hour x 2 L Tylenol as needed for pain or fever Empiric antibiotics with ceftriaxone and doxycycline for now #Acute metabolic encephalopathypatient is more confused, likely secondary to underlying infection, dehydration. He is arousable, answers questions appropriately and follows commands. mild hyponatremia with sodium = 131 not likely contributing. He has largely normal electrolytes. Empiric antibiotics as above Frequent orientation #COPDno cough, shortness of breath or wheeze. Patient with adequate oxygenation on 2 L nasal cannula. He does have oxygen at home that he uses at night Continue Trelegy or formulary equivalent Albuterol as needed for shortness of breath or wheeze #Hypertensionpatient with significant tachycardia upon arrival. Suspect at least in part to beta-sai withdrawal. Patient is on metoprolol 12.5 mg every morning and has not taken his medication for several days Continue metoprolol 12.5 mg p.o. every morning Hold losartan for now given increased creatinine Continue to monitor #GERD Continue Protonix 40 mg p.o. twice daily #XAVI on CKDpatient with elevated creatinine from baseline. Reports he has not been eating or drinking over the last several days. Additional labs confirm dehydration LR at 125 mL/h x 2 L Avoid nephrotoxic agents Renal dosing were needed Repeat chemistry in the morning #DVT prophylaxis Heparin twice daily. Monitor platelets History of Present Illness Chief Complaint: Nausea, generalized weakness, rigors, confusion Primary Care Provider: DO Amrit Colónmariam is a 74-year-old male with history of hypertension, hyperlipidemia, CKD stage III presenting from home with 4 to 5 days of nausea, generalized weakness, fever, headache and confusion. Patient does not provide many details of his symptoms but daughters are at bedside and provide majority of history. last week patient was quite active around his home and completed a lot of projects in his home and around his property. [place]. Over the last 4 to 5 days he has had significant nausea, decreased oral intake and has not been taking his medications. He has had generalized weakness and fatigue as well as fever and confusion. This evening daughters have noted rigors as well. Patient endorses mild abdominal pain as well. No reports of chest pain, cough, shortness of breath. No reports of rash, joint pain or diarrhea. No urinary complaints. In the ER patient is febrile at 38.2, tachycardic at 123 beats a minute, mildly elevated blood pressure, initially hypoxic at 86% on room air which improved to 93% with placement of 2 L nasal cannula. ER course: Normal saline x 1 L Metoprolol succinate 25 mg p.o. Ceftriaxone 2 g IV Doxycycline 1100 mg IV Allergies Allergy/AdvReac Type Severity Reaction Status Date / Time adhesive tape Allergy Intermediate with hip Verified 11/23/24 10:44 replacement: tape irritated skin clavulanic acid AdvReac Intermediate Vomiting Verified 11/23/24 10:44 [From Augmentin] pollen Allergy Intermediate Itchy/Watery Uncoded 11/23/24 10:44 Eyes, Congestion, Runny Nose Home Medications Medication Instructions Recorded Confirmed Type pantoprazole 40 mg tablet,delayed 40 mg PO BID #180 tabs 06/01/24 12/14/24 Rx release fluticasone propionate 50 2 spray intranasal UD PRN 07/17/24 12/14/24 Rx mcg/actuation nasal Allergies #48 grams spray,suspension montelukast 10 mg tablet 10 mg PO QAM #90 tabs 09/04/24 12/14/24 Rx (Singulair) terazosin 5 mg capsule 5 mg PO HS #90 caps 09/17/24 12/14/24 Rx baclofen 10 mg tablet 10 mg PO BID PRN muscle spasm #60 10/05/24 12/14/24 Rx tabs losartan 50 mg tablet 100 mg PO DAILY 10/18/24 12/14/24 History metoprolol succinate 25 mg 12.5 mg PO QAM 10/18/24 12/14/24 History tablet,extended release 24 hr fluticasone fur. 100 mcg-umeclid 1 inh inhalation QAM #90 ea 11/26/24 12/14/24 Rx 62.5 mcg-vilant 25 mcg inhalat.powder (Trelegy Ellipta) Past Med/Surg History Problem List (Updated 12/15/24 @ 00:28 by Anitha Sweet MD) Acute hypoxic respiratory failure (Acute) Fever (Acute) Acute metabolic encephalopathy Fever Carpal tunnel syndrome on both sides Tingling Mild cognitive impairment Nocturnal hypoxia Torticollis Facet arthropathy, cervical Balance problem Neuroforaminal stenosis of cervical spine Cervical spondylosis Chronic low back pain Stage 3b chronic kidney disease Chronic kidney disease, stage 3 (moderate) Depression with anxiety Esophageal dysphagia Asthma COPD (chronic obstructive pulmonary disease) Allergic rhinitis Asthma, moderate persistent Chronic asthmatic bronchitis Diaphragmatic paralysis Fatty liver Gastroesophageal reflux disease without esophagitis Hypercholesterolemia Hypertension Lumbar canal stenosis Obstructive sleep apnea of adult can't tolerate cpap Prediabetes not dx that pt aware of Unequal leg length (acquired) Vitamin B12 deficiency Vitamin D deficiency Medical History Esophageal dysphagia pt denies COVID-19 (~03/27/24) hx with influenza B - resolved as per patient Influenza B (~03/27/24) and covid hx - resolved as patient 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 Frequent urination at night Terazosin for/never been told prostate enlarged. Anemia History of Lyme disease Surgical History History of esophagogastroduodenoscopy (EGD) History of colonoscopy History of total right hip replacement History of cataract surgery Bilateral H/O excision of mass Left lower back S/P thoracotomy (2004) Right Status post blepharoplasty (2012) Bilateral Status post vasectomy Status post arthroscopy of knee Left Status post hip replacement (12/2014) Left Family History Father Asthma Bronchitis Cardiac disorder Myocardial infarction Hypertension Mother Lymphoma Denies family history of Ovarian cancer Prostate cancer Breast cancer Colorectal cancer Social History Smoking Status: Former smoker Tobacco Type: Smokeless Tobacco (Dip or Chew) Age Started Using Tobacco: 20; Cigarettes Per Day: CHEWS TOBACCO DAILY (1 can last 2-3 days); Second Hand Exposure: No; Do You Dip or Chew Tobacco: Yes (Advised); Hx Alcohol Use: No Hx Substance Use: No Preferred Language: Russian Communication Ability: Effective Visual Impairment: No Limitations Hearing Ability: Normal Tobacco Cloth Reclaimer Required: No Beliefs That Will Affect Care: None marital status: Current Living Situation: Family Current Living Situation Comment: lives with his daughter current occupational status: retired How many Children do You have: 3 Feels Safe at Home: Yes Childhood Exposure to Second-Hand Smoke: Yes (father sometimes) Diet: regular caffeine: Yes during the past year weight has: remained stable Dental Care, Regularly: Yes Physical Activity Frequency: Daily Seatbelt Use: always Sunscreen Use: No Assistive Devices: Glasses Review of Systems Review of Systems: All systems reviewed & are unremarkable except as noted in HPI & below Physical Exam Physical Exam: General: patient Ill in appearance, somnolent but arousable, answers some questions and falls back to sleep. Following all commands. Skin: warm, dry, intact, no rashes or lesions HEENT: NC/AT, PERRL, EOMI, anicteric sclera, conjunctiva without injection, external ear normal to inspection and nontender, nares patent, Dry mucus membranes, dentition intact, no oropharyngeal lesions, neck supple, trachea midline, no LAD, no thyromegaly, no JVD Heart: +S1/S2, regular, no m/r/g Lungs: equal air entry bilaterally, no rales/rhonchi/wheezes Abd: +BS, soft, NT/ND, no masses/organomegaly/ascites Ext: warm, 2+ pulses in UE/LE bilaterally, no clubbing/cyanosis or edema Neuro: nonfocal, patient AA&O x 4, speech intact, no facial droop, moving all extremities on command with equal strength 5/5 Results & Data Results & Data Vital Signs (Past 12 Hours) Vital Signs Temp Pulse Resp BP Pulse Ox O2 Del Method O2 Flow Rate 12/14/24 20:31 137/106 H 12/14/24 20:24 107 H 20 94 12/14/24 20:12 108 H 21 94 12/14/24 20:09 107 H 22 95 12/14/24 19:30 123 H 19 148/81 H 93 12/14/24 19:27 117 H 18 12/14/24 18:51 113 H 23 94 12/14/24 18:42 114 H 24 94 12/14/24 18:33 115 H 19 94 12/14/24 18:22 93 Nasal Cannula 2 12/14/24 18:16 94 Nasal Cannula 2 12/14/24 18:11 114 H 12/14/24 18:11 38.2 C H 113 H 17 162/101 H 86 L Room Air 12/14/24 18:09 113 H 22 94 12/14/24 18:05 162/101 H 12/14/24 18:05 162/101 H Laboratory Results Laboratory Results WBC 7.10 K/ul (4.8-10.8) 12/14/24 Unknown RBC 5.21 M/uL (4.70-6.10) 12/14/24 Unknown Hgb 16.7 g/dl (14.0-18.0) 12/14/24 Unknown Hct 46.5 % (42.0-52.0) 12/14/24 Unknown MCV 89.3 fL (80.0-100.0) 12/14/24 Unknown MCH 32.1 pg (25.0-34.0) 12/14/24 Unknown MCHC 35.9 g/dL (32.0-36.0) 12/14/24 Unknown RDW Std Deviation 41.1 fL (36.4-46.3) 12/14/24 Unknown RDW Coeff of Robyn 12.5 % (11.5-14.5) 12/14/24 Unknown Plt Count 114 K/uL (130-400) L 12/14/24 Unknown MPV 10.1 fL (9.4-12.4) 12/14/24 Unknown Immature Gran % (Auto) 0.4 % 12/14/24 Unknown Neut % (Auto) 86.7 % 12/14/24 Unknown Lymph % (Auto) 7.5 % 12/14/24 Unknown [place] % (Auto) 5.1 % 12/14/24 Unknown Eos % (Auto) 0.0 % 12/14/24 Unknown Baso % (Auto) 0.3 % 12/14/24 Unknown Neut # (Auto) 6.16 K/uL (1.40-6.50) 12/14/24 Unknown Lymph # (Auto) 0.53 K/uL (1.20-3.40) L 12/14/24 Unknown [place] # (Auto) 0.36 K/uL (0.11-0.59) 12/14/24 Unknown Eos # (Auto) 0.00 K/uL (0.00-0.50) 12/14/24 Unknown Baso # (Auto) 0.02 K/uL (0.00-0.20) 12/14/24 Unknown Immature Gran # (Auto) 0.03 K/uL (0.01-0.20) 12/14/24 Unknown Sodium 131 mmol/L (136-145) L 12/14/24 Unknown Potassium 4.1 mmol/L (3.5-5.1) 12/14/24 Unknown Chloride 95 mmol/L (98-107) L 12/14/24 Unknown Carbon Dioxide 28 mmol/L (21-32) 12/14/24 Unknown Anion Gap 8 (3-11) 12/14/24 Unknown BUN 29 mg/dl (6-23) H 12/14/24 Unknown Creatinine 2.02 mg/dl (0.6-1.4) H 12/14/24 Unknown Est Cr Clr Drug Dosing 36.9 ml/min 12/14/24 Unknown eGFR 34.39 12/14/24 Unknown BUN/Creatinine Ratio 14.4 (10-20) 12/14/24 Unknown Glucose 139 mg/dl (70-99(Fasting)) H 12/14/24 Unknown Calcium 8.5 mg/dl (8.6-10.3) L 12/14/24 Unknown Total Bilirubin 1.5 mg/dl (0.2-1.0) H 12/14/24 Unknown AST 29 U/L (13-39) 12/14/24 Unknown ALT 22 U/L (7-52) 12/14/24 Unknown Alkaline Phosphatase 71 U/L (34-104) 12/14/24 Unknown Total Protein 6.9 gm/dl (6.0-8.3) 12/14/24 Unknown Albumin 3.9 gm/dl (3.4-5.0) 12/14/24 Unknown Globulin 3.0 gm/dl (2.5-4.0) 12/14/24 Unknown Albumin/Globulin Ratio 1.3 (0.9-2) 12/14/24 Unknown Urine Color Dark Yellow 12/14/24 Unknown Urine Appearance Clear (Clear) 12/14/24 Unknown Urine pH 5.5 (4.5-7.5) 12/14/24 Unknown Ur Specific Equality 1.024 (1.000-1.030) 12/14/24 Unknown Urine Protein 3+ (Negative) H 12/14/24 Unknown Urine Glucose (UA) Negative (Negative) 12/14/24 Unknown Urine Ketones Trace (Negative) H 12/14/24 Unknown Urine Blood 2+ (Negative) H 12/14/24 Unknown Urine Nitrite Negative (Negative) 12/14/24 Unknown Urine Bilirubin Negative (Negative) 12/14/24 Unknown Urine Urobilinogen Negative (Negative) 12/14/24 Unknown Ur Leukocyte Esterase Negative (Negative) 12/14/24 Unknown Urine WBC (Auto) 0-5 /hpf (0-5) 12/14/24 Unknown Urine RBC (Auto) 3-5 /hpf (0-2) H 12/14/24 Unknown U Hyaline Cast (Auto) 6-10 /lpf (0-2) H 12/14/24 Unknown U Epithel Cells (Auto) 0-2 /hpf (0-2) 12/14/24 Unknown Urine Bacteria (Auto) None Seen (None Seen) 12/14/24 Unknown Hyaline Casts Present /lpf (None Presnt) A 12/14/24 Unknown Urine Comment 12/14/24 Unknown Adenovirus (PCR) Not Detected (NotDetected) 12/14/24 Unknown Anaplasma Smear See Comment 12/14/24 21:32 Babesia Smear See Comment 12/14/24 21:32 B. pertussis DNA (PCR) Not Detected (NotDetected) 12/14/24 Unknown B.parapertussis DNA PCR Not Detected (NotDetected) 12/14/24 Unknown C. pneumoniae DNA (PCR) Not Detected (NotDetected) 12/14/24 Unknown Coronavirus OC43 (PCR) Not Detected (NotDetected) 12/14/24 Unknown Coronavirus HKU1 (PCR) Not Detected (NotDetected) 12/14/24 Unknown Coronavirus 229E (PCR) Not Detected (NotDetected) 12/14/24 Unknown SARS-CoV-2 (PCR) Not Detected (NotDetected) 12/14/24 Unknown Coronavirus NL63 (PCR) Not Detected (NotDetected) 12/14/24 Unknown Human Metapneumovir PCR Not Detected (NotDetected) 12/14/24 Unknown Influenza Type A (PCR) Not Detected (NotDetected) 12/14/24 Unknown Influenza Type B (PCR) Not Detected (NotDetected) 12/14/24 Unknown M. pneumoniae (PCR) Not Detected (NotDetected) 12/14/24 Unknown Parainfluenza 1 (PCR) Not Detected (NotDetected) 12/14/24 Unknown Parainfluenza 2 (PCR) Not Detected (NotDetected) 12/14/24 Unknown Parainfluenza 3 (PCR) Not Detected (NotDetected) 12/14/24 Unknown Parainfluenza 4 (PCR) Not Detected (NotDetected) 12/14/24 Unknown RSV (PCR) Not Detected (NotDetected) 12/14/24 Unknown Entero/Rhino (PCR) Not Detected (NotDetected) 12/14/24 Unknown Impressions Chest X-Ray 12/14/24 18:17 Chest radiograph, one view History: Dyspnea Comparison: None Findings: Single AP view of the chest performed. No focal consolidation or pleural effusion. No pneumothorax. The cardiomediastinal silhouette is within normal limits. Normal pulmonary vascularity. No evidence for lymphadenopathy. No visualized bony or soft tissue abnormality. Impression: Normal chest radiograph Electronically signed by Jeferson Li 12-14-2024 6:58 PM ECG Additional Comments: EKG per my independent interpretation reveals sinus tachycardia 113 bpm, first- degree AV block with OR = 212 ms, QRS = 82, QTc = 425, left axis deviation, possible age indeterminant inferior infarct, poor R wave progression PG Care Time/CCT Total # of Minutes Spent Total Time Spent with Patient: Total time spent is greater than 50% in coordination of care (as documented) at patient's floor/unit and/or counseling patient: Coding Level of Care Code 34705 INT INP/OBS CARE MIN Diagnoses Fever R50.9 Acute metabolic encephalopathy G93.41 COPD (chronic obstructive pulmonary disease) J44.9 Hypertension I10 Gastroesophageal reflux disease without esophagitis K21.9 Stage 3b chronic kidney disease N18.32
[2024-12-14] MEDS: cefTRIAXone SODIUM 2,000 MG/50 ML BAG IV STA (21:48)
[2024-12-14] MEDS: METOPROLOL SUCC 25MG EXT REL TAB PO STA (21:48)
[2024-12-14] MEDS: DOXYCYCLINE HYCLATE 100 MG in DEXTROSE 5% MINI-B 100 ML IV STA (22:17)
[2024-12-14 22:47] LABS: Lyme Screen Rflx Confirmation Positive (Negative)
[2024-12-14] MEDS: ACETAMINOPHEN 1,000 MG/100 ML VIAL IV STA (23:25)
[2024-12-14 23:30] LABS: Lyme Ab IgG 2nd Tier Confirm Negative (Negative); Lyme Ab IgM 2nd Tier Confirm Negative (Negative)
[2024-12-14 23:35] LABS: Magnesium 1.8 mg/dl (1.7-2.4)
[2024-12-14 23:50] LABS: Thyroid Stimulating Hormone 1.099 uIu/ml (0.300-4.500)
[2024-12-14] MEDS: LACTATED RINGER'S 1,000 ML IV SCH (23:54)
[2024-12-15] MEDS: TERAZOSIN HCL 5 MG CAP PO SCH (00:01)
[2024-12-15] MEDS: ONDANSETRON INJ 2 MG/ML 2 ML VIAL IV PRN (00:23)
[2024-12-15] MEDS: AZITHROMYCIN 500 MG/255 ML BAG IV ONE (00:30)
[2024-12-15] MEDS ORDERED: ALBUTEROL 0.083% NEBU SOLN 3 ML VIAL NEB PRN (02:16)
[2024-12-15 06:00] LABS: Hematocrit (blood only) 45.6 % (42.0-52.0); Hemoglobin 15.3 g/dl (14.0-18.0); Mean Corpuscular Hemoglobin 30.6 pg (25.0-34.0); Mean Corpuscular Volume 91.2 fL (80.0-100.0); Platelet Count 85 K/uL (130-400); RDW Standard Deviation 43.8 fL (36.4-46.3); Red Blood Count 5.00 M/uL (4.70-6.10); White Blood Count 6.69 K/ul (4.8-10.8)
[2024-12-15 06:17] LABS: Alanine Aminotransferase 21.0 U/L (7-52); Albumin Level 3.7 gm/dl (3.4-5.0); Alkaline Phosphatase 62.0 U/L (34-104); Anion Gap 7.0 (3-11); Bilirubin,Total 1.4 mg/dl (0.2-1.0); Blood Urea Nitrogen 31.0 mg/dl (6-23); Calcium 8.1 mg/dl (8.6-10.3); Carbon Dioxide 29.0 mmol/L (21-32); Chloride 97.0 mmol/L (98-107); Creatinine Clr Calc Pharmacy 36.7 ml/min; Glucose 118.0 mg/dl (70-99(Fasting)); Potassium 4.3 mmol/L (3.5-5.1); Sodium 133.0 mmol/L (136-145); Total Protein 6.5 gm/dl (6.0-8.3)
[2024-12-15] MEDS: ACETAMINOPHEN 325 MG TAB PO PRN (06:18)
[2024-12-15] MEDS: FLUTICASONE FUROATE 100MCG 14 PUFFS/INHALER INH SCH (08:53)
[2024-12-15] MEDS: HEPARIN SOD 5,000 UNIT/0.5 ML VIAL SQ SCH (08:53)
[2024-12-15] MEDS: DOXYCYCLINE HYCLATE 100 MG CAP PO SCH (08:53)
[2024-12-15] MEDS: cefTRIAXone SODIUM 2,000 MG/50 ML BAG IV SCH (08:53)
[2024-12-15] MEDS: METOPROLOL SUCC 25MG EXT REL TAB PO SCH (08:53)
[2024-12-15] MEDS: MONTELUKAST SODIUM 10 MG TABLET PO SCH (08:53)
[2024-12-15] MEDS: UMECLIDINIUM/VILANTEROL 62.5/25MCG 7 PUFFS/INHALER INH SCH (08:53)
[2024-12-15] MEDS ORDERED: NON-FORMULARY MEDICATION (Fluticasone-Umeclidin-Vilanter [Trelegy Ellipta] 100-62.5-25 mcg INH SCH (09:00)
--- NOTE | 2024-12-15 10:47 | Hospitalist Progress Note ---
Date of Service December 15, 2024 Assessment & Plan (1) Fever: Plan: Follow cultures and remaining Lyme/tickborne studies LR at 125 mL's per hour x 2 L Tylenol as needed for pain or fever Empiric antibiotics with ceftriaxone and doxycycline for now - ID consulted (2) Acute metabolic encephalopathy: Plan: -likely secondary to underlying infection, dehydration -cont IVF and abx (3) COPD (chronic obstructive pulmonary disease): Plan: Continue Trelegy or formulary equivalent Albuterol as needed for shortness of breath or wheeze (4) Hypertension: Plan: Continue metoprolol 12.5 mg p.o. every morning Hold losartan for now given increased creatinine (5) Gastroesophageal reflux disease without esophagitis: Plan: Continue Protonix 40 mg p.o. twice daily (6) Stage 3b chronic kidney disease: Plan: LR at 125 mL/h x 2 L Avoid nephrotoxic agents Plan Patient is a 74-year-old male with history of hypertension, hyperlipidemia, COPD, CKD presenting with 4 to 5 days of nausea, generalized weakness, headache, fever and confusion. Patient febrile upon arrival DVT px with heparin Admission and Anticipated Discharge Date Admission Date: December 14, 2024 Subjective No events overnight. Pt resting comfortably in bed. Review of Systems Review of Systems: CONST: Negative for fever, body aches and chills. HENT: Negative for neck pain/stiffness, headache, congestion, sore throat, swelling. EYES: Negative for discharge/pain or vision changes. RESP: Negative for cough/hemoptysis and shortness of breath. CV: Negative chest pain, difficulty breathing, palpitations. ABD: Negative pain, nausea, vomiting. : Negative increase frequency, dysuria, blood in urine or stool. MUSC: Negative for muscle aches, edema. SKIN: Negative rash, lesions/sores. NEURO: Negative headache, dizziness, weakness. Physical Exam Physical Exam: GENERAL APPEARANCE NAD, activity normal for age, well developed/ well nourished, no cyanosis, pallor, or diaphoresis. EYES lids/conjunctiva normal. EARS/NOSE/THROAT Mucous membranes moist, nares normal, lips/teeth normal uvula midline without oral pharyngeal erythema, exudate or swelling TMs normal bilaterally. No lymphangitis/lymphedema. HEAD/NECK normocephalic atraumatic, no facial trauma, neck is supple. RESPIRATORY respiratory effort normal, speaks in full sentences, no tripod position, no accessory muscle use. Lungs clear to auscultation without rhonchi, wheezes, rales CARDIAC Regular rate and rhythm, no edema. ABDOMINAL Soft, ND/NT. No evidence of fluid wave. No pulsatile masses on exam, rebound tenderness, Morales sign or pain over Mcburney's point. MUSCLES/EXTREMITIES No abnormal range of motion, no swelling. SKIN Warm, pink and dry. No rashes, dermatoses, petechiae or lesions. NEUROLOGICAL Speech is clear and appropriate. Normal level of consciousness. Gait and coordination are normal. 5/5 strength in all extremities. PSYCH Normal mood and affect. Judgement/competence is appropriate Results & Data Results & Data Vital Signs (Past 12 Hours) Vital Signs Temp Pulse Pulse Resp BP Pulse Ox O2 Del Method 12/15/24 10:33 Nasal Cannula 12/15/24 09:15 37.1 C 75 103/62 92 Room Air 12/15/24 06:22 90 12/15/24 04:20 37.0 C 77 18 111/64 95 Nasal Cannula 12/15/24 01:34 Nasal Cannula 12/15/24 00:00 94 H 144/81 H 94 Nasal Cannula 12/14/24 23:30 38.3 C H 104 H 19 159/88 H 92 Nasal Cannula 12/14/24 23:10 38.3 C H 104 H 19 159/88 H 92 Nasal Cannula 12/14/24 22:55 100 H O2 Flow Rate 12/15/24 10:33 2 12/15/24 09:15 12/15/24 06:22 12/15/24 04:20 2 12/15/24 01:34 2 12/15/24 00:00 2 12/14/24 23:30 2 12/14/24 23:10 2 12/14/24 22:55 PG Care Time/CCT Total # of Minutes Spent Total Time Spent with Patient: Total time spent is greater than 50% in coordination of care (as documented) at patient's floor/unit and/or counseling patient: Coding Level of Care Code 33299 SUB INP/OBS CARE 2/35MIN Diagnoses Fever R50.9 Acute metabolic encephalopathy G93.41 COPD (chronic obstructive pulmonary disease) J44.9 Hypertension I10 Gastroesophageal reflux disease without esophagitis K21.9 Stage 3b chronic kidney disease N18.32
--- NOTE | 2024-12-15 11:47 | Ultrasound Report ---
Technique: Venous ultrasound evaluation was performed utilizing grayscale, color Doppler and wave form evaluation. Images were also obtained with and without compression Findings: The bilateral common femoral, superficial femoral, popliteal, and visualized calf veins demonstrate normal anechoic lumens with full compressibility. Normal flow is seen on color Doppler images. Expected waveforms were produced with augmentation maneuvers Impression: No evidence of deep venous thrombosis Electronically signed by Anurag Richmond 12-15-2024 11:47 AM
--- NOTE | 2024-12-15 11:51 | Electrocardiogram Report ---
Test Reason : Blood Pressure : */* mmHG Vent. Rate : 113 BPM Atrial Rate : 113 BPM P-R Int : 212 ms QRS Dur : 82 ms QT Int : 310 ms P-R-T Axes : 52 -47 18 degrees QTcB Int : 425 ms Sinus tachycardia with 1st degree A-V block Left axis deviation Inferior infarct , age undetermined Poor R wave progression, consider anterior [place] vs. lead placement vs. LVH Abnormal ECG When compared with ECG of 12-Jan-2015 12:00, Questionable change in QRS duration Inferior infarct is now Present Confirmed by Khanh Velasco ([id number]) on 12/15/2024 11:50:40 AM Referred By: Confirmed By: Khanh Velasco
[2024-12-15] MEDS: MAGNESIUM HYDROXIDE SUSP 30 ML UDC PO PRN (16:14)
[2024-12-15] MEDS: BACLOFEN 10 MG TAB PO PRN (21:43)
[2024-12-16 08:58] LABS: Hematocrit (blood only) 40.5 % (42.0-52.0); Hemoglobin 13.5 g/dl (14.0-18.0); Mean Corpuscular Hemoglobin 30.3 pg (25.0-34.0); Mean Corpuscular Volume 90.8 fL (80.0-100.0); Platelet Count 73 K/uL (130-400); RDW Standard Deviation 43.0 fL (36.4-46.3); Red Blood Count 4.46 M/uL (4.70-6.10); White Blood Count 3.10 K/ul (4.8-10.8)
[2024-12-16 09:13] LABS: Anion Gap 1.0 (3-11); Blood Urea Nitrogen 31.0 mg/dl (6-23); Calcium 8.1 mg/dl (8.6-10.3); Carbon Dioxide 32.0 mmol/L (21-32); Chloride 101.0 mmol/L (98-107); Creatinine Clr Calc Pharmacy 39.1 ml/min; Glucose 123.0 mg/dl (70-99(Fasting)); Potassium 3.8 mmol/L (3.5-5.1); Sodium 134.0 mmol/L (136-145)
[2024-12-16] MEDS: DOCUSATE SODIUM 100 MG CAP PO PRN (09:30)
[2024-12-16] MEDS ORDERED: PNEUMOCOCCAL VACCINE (PCV20) 20-VAL CONJ-DIP CRM/PF 0.5 ML SYR IM ONE (10:30)
[2024-12-16] MEDS ORDERED: INFLUENZA VACC TS2025-26(65y+)/PF (IIV3) 0.5mL Syr IM ONE (10:30)
--- NOTE | 2024-12-16 11:44 | Hospitalist Progress Note ---
Date of Service December 16, 2024 Assessment & Plan (1) Fever: Plan: Follow cultures and remaining Lyme/tickborne studies - Lyme antibody positive, IgG, IgM negative Empiric antibiotics with ceftriaxone and doxycycline for now - ID consulted - pt still with temp 38C in past 24 hrs - appetite improving, still complaining of weakness - PT/OT eval ordered (2) Acute metabolic encephalopathy: Plan: -likely secondary to underlying infection, dehydration (3) COPD (chronic obstructive pulmonary disease): Plan: Continue Trelegy or formulary equivalent Albuterol as needed for shortness of breath or wheeze (4) Hypertension: Plan: Continue metoprolol 12.5 mg p.o. every morning Hold losartan for now given increased creatinine (5) Gastroesophageal reflux disease without esophagitis: Plan: Continue Protonix 40 mg p.o. twice daily (6) Stage 3b chronic kidney disease: Plan: LR at 125 mL/h x 2 L Avoid nephrotoxic agents Plan Patient is a 74-year-old male with history of hypertension, hyperlipidemia, COPD, CKD presenting with 4 to 5 days of nausea, generalized weakness, headache, fever and confusion. Patient febrile upon arrival DVT px with heparin Admission and Anticipated Discharge Date Admission Date: December 14, 2024 Subjective Pt did have temp of 38.0 yesterday. States he is eating more, less nausea, but still feels weak. Review of Systems Review of Systems: CONST: Negative for fever, body aches and chills. HENT: Negative for neck pain/stiffness, headache, congestion, sore throat, swelling. EYES: Negative for discharge/pain or vision changes. RESP: Negative for cough/hemoptysis and shortness of breath. CV: Negative chest pain, difficulty breathing, palpitations. ABD: Negative pain, nausea, vomiting. : Negative increase frequency, dysuria, blood in urine or stool. MUSC: Negative for muscle aches, edema. SKIN: Negative rash, lesions/sores. NEURO: Negative headache, dizziness, weakness. Physical Exam Physical Exam: GENERAL APPEARANCE NAD, activity normal for age, well developed/ well nourished, no cyanosis, pallor, or diaphoresis. EYES lids/conjunctiva normal. EARS/NOSE/THROAT Mucous membranes moist, nares normal, lips/teeth normal uvula midline without oral pharyngeal erythema, exudate or swelling TMs normal bilaterally. No lymphangitis/lymphedema. HEAD/NECK normocephalic atraumatic, no facial trauma, neck is supple. RESPIRATORY respiratory effort normal, speaks in full sentences, no tripod position, no accessory muscle use. Lungs clear to auscultation without rhonchi, wheezes, rales CARDIAC Regular rate and rhythm, no edema. ABDOMINAL Soft, ND/NT. No evidence of fluid wave. No pulsatile masses on exam, rebound tenderness, Morales sign or pain over Mcburney's point. MUSCLES/EXTREMITIES No abnormal range of motion, no swelling. SKIN Warm, pink and dry. No rashes, dermatoses, petechiae or lesions. NEUROLOGICAL Speech is clear and appropriate. Normal level of consciousness. Gait and coordination are normal. 5/5 strength in all extremities. PSYCH Normal mood and affect. Judgement/competence is appropriate Results & Data Results & Data Vital Signs (Past 12 Hours) Vital Signs Temp Pulse Pulse Resp BP Pulse Ox O2 Del Method 12/16/24 11:11 36.8 C 70 16 105/67 93 Room Air 12/16/24 08:03 37.1 C 78 18 109/69 94 Room Air 12/16/24 05:30 79 12/16/24 03:53 38.0 C H 78 20 131/77 96 Room Air PG Care Time/CCT Total # of Minutes Spent Total Time Spent with Patient: Total time spent is greater than 50% in coordination of care (as documented) at patient's floor/unit and/or counseling patient: Coding Level of Care Code 87920 SUB INP/OBS CARE 2/35MIN Diagnoses Fever R50.9 Acute metabolic encephalopathy G93.41 COPD (chronic obstructive pulmonary disease) J44.9 Hypertension I10 Gastroesophageal reflux disease without esophagitis K21.9 Stage 3b chronic kidney disease N18.32
--- NOTE | 2024-12-16 11:48 | Electrocardiogram Report ---
Test Reason : Blood Pressure : */* mmHG Vent. Rate : 67 BPM Atrial Rate : 67 BPM P-R Int : 222 ms QRS Dur : 98 ms QT Int : 398 ms P-R-T Axes : 46 -28 8 degrees QTcB Int : 420 ms Sinus rhythm with 1st degree A-V block Otherwise normal ECG When compared with ECG of 14-Dec-2024 18:10, Vent. rate has decreased by 46 bpm Criteria for Inferior infarct are no longer Present Confirmed by Khanh Velasco ([id number]) on 12/16/2024 11:47:37 AM Referred By: REFERRED SELF Confirmed By: Khanh Velasco
[2024-12-16] MEDS ORDERED: COUGH DROP (SUGAR FREE) LOZ 24 LOZ/1 BOX BUCCAL PRN (18:06)
[2024-12-16] MEDS: COUGH DROP (SUGAR FREE) LOZ 24 LOZ/1 BOX BUCCAL ONE (18:10)
[2024-12-16] MEDS: BENZONATATE 100 MG CAPSULE PO PRN (20:38)
--- NOTE | 2024-12-17 09:21 | Ultrasound Report ---
ABDOMINAL ULTRASOUND, RIGHT UPPER QUADRANT HISTORY: Acute right upper quadrant abdominal pain fever, n/v, r/o choleycstitis. COMPARISON: Abdominal ultrasound 01/06/1970 FINDINGS: Study is limited secondary to patient positioning and obscuring bowel gas. Pancreas: The pancreas demonstrates a normal echotexture, partially obscured by bowel gas. Liver: Unremarkable with patent portal vein. Gallbladder: No gallbladder wall thickening. No gallstones. CBD: 4 mm Right kidney: No hydronephrosis. IMPRESSION: Unremarkable exam. ACT 112: Negative or not required by law. Electronically signed by: Ephraim Sheehan M.D. 12/17/2024 9:19 AM
[2024-12-17] MEDS: DOXYCYCLINE HYCLATE 100 MG CAP PO SCH (11:19)
[2024-12-17 11:23] VITALS: TEMP 97.7
--- NOTE | 2024-12-17 12:06 | Infectious Disease Consult ---
Date of Consultation December 17, 2024 Assessment & Plan (1) Fever: Plan This is a 74-year-old male with past medical history of hypertension, hyperlipidemia, CKD who presents to the [facility] ED with a 5-day history of fevers, nausea, myalgias, weakness,headaches for approximately 5 days. He endorsed associated mild abdominal discomfort, chills and confusion. 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 Denies any animal bites,cough, chest pain, sick contacts. [place] an d does a lot of projects around the home. He believes he may have been bit by an insect on the left leg. He is not sure if it was a tick. He has a history of Lyme disease. On admission, he is febrile with a T 38.2, tachycardic and hypoxic. O2 sats 86 on room air which then improved to 93% on 2 L nasal cannula. Labs: WBC 7.10,hemoglobin 16.7, platelets 114, sodium 131, BUN 29, creatinine 2.02, total bili 1.5. Urinalysis without pyuria. Respiratory viral panel negative. Anaplasma and Babesia smear negative. Lyme screen positive. Lyme IgG and IgM confirmation negative. Chest x-ray normal. Bilateral lower extremity Doppler negative for DVT. Liver ultrasound unremarkable. CT chest with no acute intrathoracic findings. No consolidation to suggest pneumonia. CT abdomen pelvis with no acute intra-abdominal findings. He was started on ceftriaxone and doxycycline however these were discontinued. His last fever was today 12/16 at approximately 3 AM. Infectious disease consulted for fever of unknown origin. Today, WBC down to 3.10 and Plts 73 . He is now on RA and feeling better, Microbiology 12/14 blood culture NGTD 12/14 Lyme screen positive, Lyme IgG and Lyme IgM negative 12/14 Anaplasma smear and Babesia smear negative 12/14 Babesia PCR in process 12/14 Anaplasma PCR in process 12/14 RVP negative Antibiotics Ceftriaxone 12/14 - 12/16 Doxycycline 12/14 - 12/16 # Fevers # Leukopenia # Thrombocytopenia # History of Lyme disease #Status post R hip replacement, no issues at hip #Acute hypoxic respiratory failure, resolved Discussion: He presents with fevers, malaise, and generally feeling unwell. Labs notable for leukopenia and progressive thrombocytopenia. [place]. Admits to a insect bite in the popliteal area of the left leg. Unclear if it was a tick bite. He denies any rashes or ulcers. Denies any cough, GI or urinary symptoms. Lyme screen postive , confirmatory testing negative. Given leukopenia, thrombocytopenia and presenting symptoms no other signs of infection elsewhere,would treat for presumed tickborne illness, especially Anaplasma/Ehrlichia. He received~ 2 days of ceftriaxone and doxycycline. Which were discontinued yesterday. His fevers curve improved. Last fever on 12/16 at ~3a. Although Lyme confirmatory testing is negative, in early Lyme disease this is expected. Additionally Anaplasma PCR is pending. Will restart doxycycline. Recommendations: Restarted doxycycline 100 mg p.o. every 12 hours. Plan for total of 14 days Monitor WBC and platelets Follow-up Anaplasma PCR and Babesia PCR. Recommendations discussed with patient and communicated to hospitalist. Thank you for this consult. ID will sign off. Please call if fevers recur and persist Bijal Duran MD, MPH Infectious Disease [facility] Call [phone] with questions Consultation Information Consultation was provided via telemedicine using two-way real-time interactive telecommunication between the patient and the telemedicine provider. For the duration of the visit, the provider was performing the assessment from a differ ent facility than the patient. This includesuse of bluetooth stethoscope forauscultationperformed by the telepresenter that the telemedicine provider can hear if described in the physical exam. Mitigation Supervisor contact information: Please call [facility] . (Phone Number For Physician Use Only) After establishing a telemedicine visit, patient was: Patient was verified with two unique identifiers and Gave permission to continue telehealth session Time Spent with Patient: Initial => 75 min History of Present Illness Reason for Consultation: IGNACIA BETH Requesting Physician: Darrell Guerrero DO Attending Physician: Darrell Guerrero DO History of Present Illness This is a 74-year-old male with past medical history of hypertension, hyperlipidemia, CKD who presents to the [facility] ED with a 5-day history of fevers, nausea, myalgias, weakness,headaches for approximately 5 days. He endorsed associated mild abdominal discomfort, chills and confusion. 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 Denies any animal bites,cough, chest pain, sick contacts. [place] an d does a lot of projects around the home. He believes he may have been bit by an insect on the left leg. He is not sure if it was a tick. He has a history of Lyme disease. On admission, he is febrile with a T 38.2, tachycardic and hypoxic. O2 sats 86 on room air which then improved to 93% on 2 L nasal cannula. Labs: WBC 7.10,hemoglobin 16.7, platelets 114, sodium 131, BUN 29, creatinine 2.02, total bili 1.5. Urinalysis without pyuria. Respiratory viral panel negative. Anaplasma and Babesia smear negative. Lyme screen positive. Lyme IgG and IgM confirmation negative. Chest x-ray normal. Bilateral lower extremity Doppler negative for DVT. Liver ultrasound unremarkable. CT chest with no acute intrathoracic findings. No consolidation to suggest pneumonia. CT abdomen pelvis with no acute intra-abdominal findings. He was started on ceftriaxone and doxycycline however these were discontinued. His last fever was today 12/16 at approximately 3 AM. Infectious disease consulted for fever of unknown origin. Today, WBC down to 3.10 and Plts 73 He is now on RA and feeling better. Allergies Allergy/AdvReac Type Severity Reaction Status Date / Time adhesive tape Allergy Intermediate with hip Verified 11/23/24 10:44 replacement: tape irritated skin clavulanic acid AdvReac Intermediate Vomiting Verified 11/23/24 10:44 [From Augmentin] pollen Allergy Intermediate Itchy/Watery Uncoded 11/23/24 10:44 Eyes, Congestion, Runny Nose Home Medications Medication Instructions Recorded Confirmed Type pantoprazole 40 mg tablet,delayed 40 mg PO BID #180 tabs 06/01/24 12/14/24 Rx release fluticasone propionate 50 2 spray intranasal UD PRN 07/17/24 12/14/24 Rx mcg/actuation nasal Allergies #48 grams spray,suspension montelukast 10 mg tablet 10 mg PO QAM #90 tabs 09/04/24 12/14/24 Rx (Singulair) terazosin 5 mg capsule 5 mg PO HS #90 caps 09/17/24 12/14/24 Rx baclofen 10 mg tablet 10 mg PO BID PRN muscle spasm #60 10/05/24 12/14/24 Rx tabs losartan 50 mg tablet 100 mg PO DAILY 10/18/24 12/14/24 History metoprolol succinate 25 mg 12.5 mg PO QAM 10/18/24 12/14/24 History tablet,extended release 24 hr fluticasone fur. 100 mcg-umeclid 1 inh inhalation QAM #90 ea 11/26/24 12/14/24 Rx 62.5 mcg-vilant 25 mcg inhalat.powder (Trelegy Ellipta) doxycycline hyclate 100 mg tablet 100 mg PO BID 14 days #28 tabs 12/17/24 Rx ondansetron 4 mg disintegrating 4 mg PO BID PRN nausea and 12/17/24 Rx tablet vomiting 14 days #30 tabs umeclidinium 62.5 mcg-vilanterol 1 inh inhalation DAILY 30 days #1 12/17/24 Rx 25 mcg/actuation powdr for ea inhalation (Anoro Ellipta) Patient History Medical History Esophageal dysphagia pt denies COVID-19 (~03/27/24) hx with influenza B - resolved as per patient Influenza B (~03/27/24) and covid hx - resolved as patient 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 Frequent urination at night Terazosin for/never been told prostate enlarged. Anemia History of Lyme disease Surgical History History of esophagogastroduodenoscopy (EGD) History of colonoscopy History of total right hip replacement History of cataract surgery Bilateral H/O excision of mass Left lower back S/P thoracotomy (2004) Right Status post blepharoplasty (2012) Bilateral Status post vasectomy Status post arthroscopy of knee Left Status post hip replacement (12/2014) Left Family History Father Asthma Bronchitis Cardiac disorder Myocardial infarction Hypertension Mother Lymphoma Denies family history of Ovarian cancer Prostate cancer Breast cancer Colorectal cancer Social History Smoking Status: Former smoker Tobacco Type: Smokeless Tobacco (Dip or Chew) Age Started Using Tobacco: 20; Cigarettes Per Day: CHEWS TOBACCO DAILY (1 can last 2-3 days); Second Hand Exposure: No; Do You Dip or Chew Tobacco: Yes (Advised); Hx Alcohol Use: No Hx Substance Use: No Preferred Language: Mexican Communication Ability: Effective Visual Impairment: No Limitations Hearing Ability: Normal Captain [employer] Required: No Beliefs That Will Affect Care: None marital status: Current Living Situation: Family Current Living Situation Comment: lives with his daughter current occupational status: retired How many Children do You have: 3 Feels Safe at Home: Yes Childhood Exposure to Second-Hand Smoke: Yes (father sometimes) Diet: regular caffeine: Yes during the past year weight has: remained stable Dental Care, Regularly: Yes Physical Activity Frequency: Daily Seatbelt Use: always Sunscreen Use: No Assistive Devices: Glasses and Oxygen - at Night Review of System A 10 point ROS obtained . Pertinent positives as per HPI Physical Exam Physical Exam: Gen- NAD Neck- supple HEENT- ATNC, anicteric sclera, EOMI, No oral lesions. Some mising teeth on the bottom Lungs- Non labored breathing, On RA Abdomen- Non distended, not tender. soft Ext- No edema Skin-Left LE popliteal area- small red area- ? post insect bite Neuro- AAo times 3 Psych- cooperative Results & Data Vital Signs (Past 12 Hours) Vital Signs Temp Pulse Pulse Resp BP BP Pulse Ox 12/17/24 11:22 36.5 C 62 18 146/81 H 90 12/17/24 08:12 36.6 C 69 18 130/77 92 12/17/24 07:00 64 12/17/24 04:05 36.6 C 68 20 133/67 92 O2 Del Method 12/17/24 11:22 Room Air 12/17/24 08:12 Room Air 12/17/24 07:00 12/17/24 04:05 Room Air Laboratory Results 12/14/24 18:56 Aerobic Blood Culture - Preliminary Blood No growth in Aerobic bottle after 48 hours. Anaerobic Blood Culture - Preliminary No growth in Anaerobic bottle after 48 hours. 12/14/24 19:00 Aerobic Blood Culture - Preliminary Blood No growth in Aerobic bottle after 48 hours. Anaerobic Blood Culture - Preliminary No growth in Anaerobic bottle after 48 hours. Laboratory Results - last 48 hr 12/16/24 08:40 WBC 3.10 L RBC 4.46 L Hgb 13.5 L Hct 40.5 L MCV 90.8 MCH 30.3 MCHC 33.3 RDW Std Deviation 43.0 RDW Coeff of Robyn 13.0 Plt Count 73 L MPV 10.5 Sodium 134 L Potassium 3.8 Chloride 101 Carbon Dioxide 32 Anion Gap 1 L BUN 31 H Creatinine 2.01 H Est Cr Clr Drug Dosing 39.1 eGFR 34.60 BUN/Creatinine Ratio 15.4 Glucose 123 H Calcium 8.1 L Diagnostic Findings Chest X-Ray 12/14/24 18:17 Chest radiograph, one view History: Dyspnea Comparison: None Findings: Single AP view of the chest performed. No focal consolidation or pleural effusion. No pneumothorax. The cardiomediastinal silhouette is within normal limits. Normal pulmonary vascularity. No evidence for lymphadenopathy. No visualized bony or soft tissue abnormality. Impression: Normal chest radiograph Electronically signed by Jeferson Li 12-14-2024 6:58 PM Venous Doppler Study 12/15/24 07:51 Technique: Venous ultrasound evaluation was performed utilizing grayscale, color Doppler and wave form evaluation. Images were also obtained with and without compression Findings: The bilateral common femoral, superficial femoral, popliteal, and visualized calf veins demonstrate normal anechoic lumens with full compressibility. Normal flow is seen on color Doppler images. Expected waveforms were produced with augmentation maneuvers Impression: No evidence of deep venous thrombosis Electronically signed by Anurag Richmond 12-15-2024 11:47 AM Liver Ultrasound 12/17/24 07:59 ABDOMINAL ULTRASOUND, RIGHT UPPER QUADRANT HISTORY: Acute right upper quadrant abdominal pain fever, n/v, r/o choleycstitis. COMPARISON: Abdominal ultrasound 01/06/1970 FINDINGS: Study is limited secondary to patient positioning and obscuring bowel gas. Pancreas: The pancreas demonstrates a normal echotexture, partially obscured by bowel gas. Liver: Unremarkable with patent portal vein. Gallbladder: No gallbladder wall thickening. No gallstones. CBD: 4 mm Right kidney: No hydronephrosis. IMPRESSION: Unremarkable exam. ACT 112: Negative or not required by law. Electronically signed by: Ephraim Sheehan M.D. 12/17/2024 9:19 AM Medications Administered Home Medications Medication Instructions Recorded Confirmed Last Taken pantoprazole 40 mg tablet,delayed 40 mg PO BID #180 tabs 06/01/24 12/14/24 Unknown release fluticasone propionate 50 2 spray intranasal UD PRN 07/17/24 12/14/24 Unknown mcg/actuation nasal Allergies #48 grams spray,suspension montelukast 10 mg tablet 10 mg PO QAM #90 tabs 09/04/24 12/14/24 Unknown (Singulair) terazosin 5 mg capsule 5 mg PO HS #90 caps 09/17/24 12/14/24 Unknown baclofen 10 mg tablet 10 mg PO BID PRN muscle spasm #60 10/05/24 12/14/24 Unknown tabs losartan 50 mg tablet 100 mg PO DAILY 10/18/24 12/14/24 Unknown metoprolol succinate 25 mg 12.5 mg PO QAM 10/18/24 12/14/24 Unknown tablet,extended release 24 hr fluticasone fur. 100 mcg-umeclid 1 inh inhalation QAM #90 ea 11/26/24 12/14/24 Unknown 62.5 mcg-vilant 25 mcg inhalat.powder (Trelegy Ellipta) Active Medications Generic Name Dose Route Start Last Admin Trade Name Freq PRN Reason Stop Dose Admin Acetaminophen 650 mg 12/14/24 23:10 12/16/24 23:13 Acetaminophen 325 Mg Tab PO 01/13/25 23:09 650 mg Q4H PRN Administration Pain or Fever Baclofen 10 mg 12/15/24 21:07 12/16/24 20:27 Baclofen 10 Mg Tab PO 01/14/25 21:06 10 mg BID PRN Administration muscle spasm Benzonatate 200 mg 12/16/24 18:13 12/16/24 20:38 Benzonatate 100 Mg Capsule PO 01/15/25 20:59 200 mg TID PRN Administration Cough Docusate Sodium 100 mg 12/14/24 23:10 12/16/24 09:30 Docusate Sodium 100 Mg Cap PO 01/13/25 23:09 100 mg BID PRN Administration Constipation Doxycycline Hyclate 100 mg 12/17/24 11:00 12/17/24 11:19 Doxycycline Hyclate 100 Mg Cap PO 12/19/24 10:59 100 mg Q12H SALVADOR Administration Fluticasone Furoate 1 puffs 12/15/24 09:00 12/17/24 10:15 Fluticasone Furoate 100mcg 14 Puffs/Inhaler INH 01/14/25 08:59 Not Given DAILY SALVADOR Heparin Sodium (Porcine) 5,000 units 12/15/24 09:00 12/17/24 10:14 Heparin Sod 5,000 Unit/0.5 Ml Vial SQ 01/14/25 08:59 Not Given Q12 SALVADOR Magnesium Hydroxide 30 ml 12/15/24 16:01 12/16/24 10:12 Magnesium Hydroxide Susp 30 Ml Udc PO 01/14/25 16:00 30 ml Q6H PRN Administration Constipation Metoprolol Succinate 12.5 mg 12/15/24 09:00 12/17/24 10:16 Metoprolol Succ 25mg Ext Rel Tab PO 01/14/25 08:59 12.5 mg QAM SALVADOR Administration Montelukast Sodium 10 mg 12/15/24 09:00 12/17/24 10:16 Montelukast Sodium 10 Mg Tablet PO 01/14/25 08:59 10 mg QAM SALVADOR Administration Ondansetron HCl 4 mg 12/14/24 23:10 12/17/24 11:54 Ondansetron Inj 2 Mg/Ml 2 Ml Vial IV 01/13/25 23:09 4 mg Q6H PRN Administration Nausea And Vomiting Pantoprazole Sodium 40 mg 12/14/24 23:10 12/17/24 10:16 Pantoprazole 40 Mg Tab PO 01/13/25 23:09 40 mg BID SALVADOR Administration Terazosin HCl 5 mg 12/14/24 23:10 12/16/24 20:27 Terazosin Hcl 5 Mg Cap PO 01/13/25 23:09 5 mg HS SALVADOR Administration Umeclidinium/Vilanterol 1 puffs 12/15/24 09:00 12/17/24 10:16 Umeclidinium/Vilanterol 62.5/25mcg 7 Puffs/Inhaler INH 01/14/25 08:59 Not Given DAILY SALVADOR (1) Fever Fever type: unspecified Qualified Code(s): R50.9 - Fever, unspecified
[2024-12-17 13:56] VITALS: RESP 17; O2SAT 93
--- NOTE | 2024-12-17 14:26 | CT Scan Report ---
CT OF THE CHEST WITHOUT IV CONTRAST CLINICAL HISTORY: High fever. COMPARISON STUDY: Chest radiograph December 14, 2024. CT DOSE: 2507.31 mGy.cm TECHNIQUE: Axial images of the chest were obtained without IV contrast. Images were reviewed in the axial, sagittal, and coronal planes. IV contrast was not administered for this examination. Automat ed exposure control was utilized for the study. A dose lowering technique was utilized adhering to t he principles of ALARA. FINDINGS: No enlarged axillary, mediastinal or hilar lymph nodes are present. Size of the heart is a t the upper limits of normal. There is no pericardial effusion. There is no pneumothorax or pleural e ffusion. There are postoperative findings within the right lung with volume loss. Elevation of the ri ght hemidiaphragm is unchanged since CT of July 12, 2016. Subpleural opacities within the right lung re present atelectasis or scarring. There is no consolidation to suggest pneumonia. A few small pulmonar y nodules measuring up to 4 mm are likely benign. A lingular nodule measuring 4 mm on image 182 is un changed since CT of July 12, 2016. There are no suspicious pulmonary nodules. Central airways are paten t. Please note that the abdomen and pelvis CT will be reported separately. IMPRESSION: 1. No acute intrathoracic findings. No consolidation to suggest pneumonia. 2. Postoperative findings within the right lung with volume loss and stable elevation the right hemid iaphragm. Subpleural right lung densities represent atelectasis or scarring. ACT 112: Negative or not required by law. Electronically signed by: Jose Francisco Garcia M.D. 12/17/2024 2:25 PM
--- NOTE | 2024-12-17 14:36 | CT Scan Report ---
ABDOMEN AND PELVIS CT WITHOUT CONTRAST HISTORY: Sepsis with fever sepsis, fever > 38 TECHNIQUE: Multiaxial CT images of the abdomen and pelvis were performed without contrast. A dose lo wering technique was utilized adhering to the principles of ALARA. COMPARISON STUDY: Ultrasound of the liver of same day, CT abdomen and pelvis 07/12/2016 FINDINGS: Moderate right hemidiaphragmatic elevation with linear right basilar atelectasis/scarring. Tiny nodule bases measure up to 3 mm, favored to be benign. No pneumatosis or pneumoperitoneum. The u nenhanced spleen is mildly enlarged at 14.4 cm. Pancreas and adrenal glands. Unchanged appearance of the gallbladder. Liver is within normal limits. Mild cortical thinning of the kidneys with mild bilateral perinephric stranding and small left-sided renal sinus cysts. No renal or ureteral calculi or hydronephrosis. Prostatomegaly. Partially decompre ssed urinary bladder. Atherosclerosis of the aorta with infrarenal ectasia, 2.6 cm. No lymphadenopath y. No bowel obstruction or bowel wall thickening. Colonic diverticulosis without acute diverticulitis . Normal appendix. Mild colonic fecal retention. Tiny fat filled umbilical hernia. No acute fracture. Bilateral hip arthroplasties. IMPRESSION: 1. No acute intra-abdominal or intrapelvic abnormality. 2. No bowel obstruction or bowel wall thickening. 3. No urolithiasis or hydronephrosis. 4. Colonic diverticulosis without acute diverticulitis. ACT 112: Negative or not required by law. The above report was generated using voice recognition software. It may contain grammatical, syntax o r spelling errors. Electronically signed by: Ephraim Sheehan M.D. 12/17/2024 2:35 PM
[2024-12-17 16:43] VITALS: BP 130/77
[2024-12-17 16:51] VITALS: PULSE 71
--- NOTE | 2024-12-17 18:00 | Discharge Summary ---
Discharge Summary Date of Service December 17, 2024 Principal Dx & Hospital Course #1 = Principal Diagnosis (1) Fever: his blood culture been negative for 72 hours but PCP will need to f/u for slow growing organism CT chest abdomen and pelvis negative for infectious pathology doxycycline BID for 14 days monitor for thrombocytopenia and leukopenia US negative for cholecystitis constipation his last colonoscopy was 15-20 years ago he's was advise to make appointment to see GI (2) Acute metabolic encephalopathy: -likely secondary to underlying infection, dehydration resolved; AAox3 (3) COPD (chronic obstructive pulmonary disease): Continue Trelegy or formulary equivalent Albuterol as needed for shortness of breath or wheeze (4) Hypertension: Continue metoprolol 12.5 mg p.o. every morning Hold losartan for now given increased creatinine (5) Gastroesophageal reflux disease without esophagitis: Continue Protonix 40 mg p.o. twice daily (6) Stage 3b chronic kidney disease: LR at 125 mL/h x 2 L Avoid nephrotoxic agents Plan Patient is a 74-year-old male with history of hypertension, hyperlipidemia, COPD, CKD presenting with 4 to 5 days of nausea, generalized weakness, headache, fever and confusion. Patient febrile upon arrival DVT px with heparin Notes For Next Care Provider referred to GI for colonoscopy check CBC while on doxycycycline Admission HPI Per Admitting Provider Amrit Hartman is a 74-year-old male with history of hypertension, hyperlipidemia, CKD stage III presenting from home with 4 to 5 days of nausea, generalized weakness, fever, headache and confusion. Patient does not provide many details of his symptoms but daughters are at bedside and provide majority of history. last week patient was quite active around his home and completed a lot of projects in his home and around his property[place] Over the last 4 to 5 days he has had significant nausea, decreased oral intake and has not been taking his medications. He has had generalized weakness and fatigue as well as fever and confusion. This evening daughters have noted rigors as well. Patient endorses mild abdominal pain as well. No reports of chest pain, cough, shortness of breath. No reports of rash, joint pain or diarrhea. No urinary complaints. In the ER patient is febrile at 38.2, tachycardic at 123 beats a minute, mildly elevated blood pressure, initially hypoxic at 86% on room air which improved to 93% with placement of 2 L nasal cannula. ER course: Normal saline x 1 L Metoprolol succinate 25 mg p.o. Ceftriaxone 2 g IV Doxycycline 1100 mg IV Discharge Exam VITALS: Reviewed. WEIGHT/BMI reviewed. GEN: Healthy appearing, well-developed, NAD. PSYCH: Good Judgment. AOx3. Normal memory, mood, and affect. HEENT -Head: NC/AT; -Mouth and throat: MMM. Normal gums, mucosa, palate,. Good dentition. NECK: Supple, with no masses. CV: RRR, no m/r/g. LUNGS: CTAB, no w/r/c. ABD: Soft, NT/ND, NBS, no masses or organomegaly. MSK: No deformities, Normal gait. EXT: No clubbing, cyanosis, or edema. NEURO: AAOx3 Discharge Plan Discharge Items Patient Disposition: Home - Self-Care Reason For Visit: FEVER, HYPOXIA Discharge Diagnosis: lyme disease low platelet constipation Condition on Discharge: Fair Lifting: Gradually increase as tolerated Non-emergency contact: Primary Care Provider and Instructional Technology Instructor Call non-emergency contact if: your symptoms worsen Follow-up/Referrals: Letty Broderick DO [Primary Care Provider] - 12/27/24 9:20 am Diet: Heart Healthy and Low Potassium (2gm) Addtl Attending Provider Instructions: you need to recheck your platelet level (CBC) on follow up with Gastroenterology for colonoscopy Pending Studies at Discharge: Yes Studies:: CBC, platelet, colonoscopy Stand-Alone Forms: [employer], Smoking Cessation Medications and DC Order Prescriptions: New umeclidinium-vilanterol [Anoro Ellipta] 62.5-25 mcg/actuation Blister With Device 1 inh inhalation DAILY 30 Days Qty: 1 0RF doxycycline hyclate 100 mg tablet 100 mg PO BID 14 Days Qty: 28 0RF ondansetron 4 mg tablet,disintegrating 4 mg PO BID PRN (Reason: nausea and vomiting) 14 Days Qty: 30 0RF Continued baclofen 10 mg tablet 10 mg PO BID PRN (Reason: muscle spasm) Qty: 60 2RF pantoprazole 40 mg tablet,delayed release (DR/EC) 40 mg PO BID Qty: 180 3RF fluticasone propionate 50 mcg/actuation spray,suspension 2 spray INTNAS UD PRN (Reason: Allergies) Qty: 48 3RF Rx Instructions: 2 sprays intranasal daily each nostril PRN montelukast [Singulair] 10 mg tablet 10 mg PO QAM Qty: 90 3RF Rx Instructions: please mail rx to pt terazosin 5 mg capsule 5 mg PO HS Qty: 90 3RF Rx Instructions: please mail rx to pt Jorge Wareta 100-62.5-25 mcg blister with device 1 inh INH QAM Qty: 90 3RF Rx Instructions: Please mail to patient metoprolol succinate 25 mg tablet extended release 24 hr 12.5 mg PO QAM losartan 50 mg tablet 100 mg PO DAILY Discharge Orders: Discharge Order (Routine); Ordered 12/17/24 Ordered By: Darrell Hamilton/Other Patient Handouts: Preventing Lyme Disease, Colonoscopy, Colorectal Cancer Screening, ED Lyme Disease Admission Data Admit Date/Time: 12/14/24 20:55 Attending Provider: Darrell Guerrero Admit Provider: Jazmyn Hollis Primary Care Provider: Letty Broderick Other Providers: Daniella Perez; Livia Espinosa; Sofi Tate; Bijal Duran; Maryuri Magaña; Jannette June Other Interventions: Discharge Summary Assessment (RN) Last Done: 12/17/24 16:43 Hospital Stay Data Consultations 12/15/24 07:52 Consult Infectious Diseases Routine Diagnostic Imagining Performed 12/15/24 07:51 US venous doppler LE BI Urgent 12/17/24 07:59 US RUQ [US liver] Urgent 12/17/24 11:08 CT chest diagnostic wo con Stat 12/17/24 11:36 CT abd pelvis wo con Stat Pending Results Patient Have Any Pending Studies at Discharge: Yes Discharge Instructions Given to Patient (Per Discharging Provider) you need to recheck your platelet level (CBC) on follow up with Gastroenterology for colonoscopy Total Time Total Time Spent Total Time Spent (In Minutes): 35 Coding Level of Care Code 74900 IN/OBS DISCH 30 MIN/LESS Diagnoses Fever R50.9 Acute metabolic encephalopathy G93.41 COPD (chronic obstructive pulmonary disease) J44.9 Hypertension I10 Gastroesophageal reflux disease without esophagitis K21.9 Stage 3b chronic kidney disease N18.32 Time Spent (min) 25
== END 2024-12-17 17:31 | disposition home or self-care (01) | DRG 865 ==
LOC: ED 18:00 → SUATTDRO 20:55 → 2N 20:55